=== PATIENT | male | born 1950 | race Caucasian/White ===

== ENCOUNTER 2017-05-07 22:23 | Inpatient (IN) | payer OTHER ==
[2017-05-07] MEDS ORDERED: SODIUM CHLORIDE 1,000 ML IV STA (22:49)
--- NOTE | 2017-05-07 23:23 | CT ---
EXAM: CT of the chest without contrast. HISTORY: Fever and cough. PROCEDURE: Contiguous axial CT images of the chest without contrast with coronal and sagittal reform ats. FINDINGS: There is motion artifact which limits the exam. The heart is within normal limits in size. The thoracic aorta is within normal limits in diameter. There is ectasia of the descending thoraci c aorta. There are calcified hilar lymph nodes. No infiltrate or consolidation. The bones and soft t issues are unremarkable. There is a moderate hiatal hernia. The adrenal glands and liver are normal i n appearance. Impression: Negative CT of the chest. Moderate hiatal hernia.
[2017-05-08] MEDS ORDERED: TAMIFLU PO STA (02:36)
--- NOTE | 2017-05-08 02:38 | ED.PDOC ---
General ED Provider: Dr. SABA CAMARA-ER Chief Complaint: Fever Stated Complaint: [place] with resp symptoms of cough, low grade fever and nasal congestion--several patients reportedly dx with influenza Time Seen by Physician: 22:30 Mode of Arrival: Ambulance Information Source: Patient, Penitentiary, EMT Exam Limitations: Dementia Primary Care [facility] Nursing and Triage Documentation Reviewed and Agree: Yes Respiratory Complaint Exam - Respiratory Complaint/Exam Onset/Duration: 24hrs Symptoms Are: Still present Initial Severity: Mild Current Severity: Mild Location: Nose, Chest Character: Reports: Non-productive cough Aggravating: Reports: URI Alleviating: Reports: Spontaneous resolution Associated Signs and Symptoms: Reports: Fever, Chills, URI, Nasal congestion. Denies: Rapid breathing, Dyspnea, Chest pain, Pleuritic chest pain, Wheezing, Hemoptysis, Dizziness, Calf pain, Calf swelling, Edema, Hoarseness, Vomiting, Sore throat, Weight loss, Decreased oral intake, Increased thirst, Increased appetite, Increased urination Related History: Reports: Similar episode History of Healthcare-Acquired Pneumonia: Lives at assisted Pseudomonas Risk Factors: Reports: None Home Oxygen Use: No Recent Stress Test: No Recent Echo/LV Function: No Current Antibiotic Use: No Current Asthma Medication Use: No Respiratory Distress: None Inadequate Respiratory Effort: No Dysphagia Present: No Stridor Present: No JVD Present: No Accessory Muscle Use: No Retractions: Not Present Diminished Breath Sounds: No Sinus Tenderness: None Grunting Respirations: No Kussmaul Respirations: No Differential Diagnoses: Influenza Review of Systems - Review Of Systems Constitutional: Reports: Chills, Fever, Weakness, Loss of appetite Eyes: Reports: No symptoms Ears, Nose, Mouth, Throat: Reports: Nose discharge Respiratory: Reports: Cough Cardiac: Reports: No symptoms GI: Reports: No symptoms : Reports: No symptoms Musculoskeletal: Reports: No symptoms Skin: Reports: No symptoms Neurological: Reports: No symptoms Endocrine: Reports: No symptoms Hematologic/Lymphatic: Reports: No symptoms All Other Systems: Reviewed and Negative Past Medical History - Past Medical History Previously Healthy: No Endocrine: Reports: Unknown Cardiovascular: Reports: Unknown Respiratory: Reports: Unknown Hematological: Reports: Unknown Gastrointestinal: Reports: Unknown Genitourinary: Reports: Unknown Neuro/Psych: Reports: Unknown Musculoskeletal: Reports: Unknown Cancer: Reports: Unknown - Surgical History General Surgical History: Reports: Unknown - Family History Family History: Reports: Unknown - Social History Smoking Status: Unknown if ever smoked Hx Substance Use: No Alcohol Screening: None - Immunizations Tetanus Shot up to Date: (unknown) Physical Exam - Physical Exam Appearance: Well-appearing Eyes: YNES, EOMI, Conjunctiva clear ENT: Rhinorrhea Neck: Supple Respiratory: Rhonchi Cardiovascular: RRR, Pulses normal, No rub, No murmur GI/: Soft Musculoskeletal: Normal strength Skin: Warm Neurological: Sensation intact, Alert Psychiatric: Affect appropriate, Mood appropriate Interpretation - Radiology Interpretation Radiology Interpretation By: Radiologist Radiology Results: Negative Exam Interpreted: CT Scan Physician Notification - Case Discussed Physician Notified: dr [email or web address] Time of Notification: 02:43 Critical Care Note - Critical Care Note Total Time (mins): 0 Course - Course Hematology/Chemistry: 05/07/17 23:14 05/07/17 23:14 Orders, Labs, Meds: Lab Review 05/07/17 05/07/17 05/07/17 22:48 23:14 23:14 WBC 8.52 RBC 5.19 Hgb 14.7 Hct 44.1 MCV 85.0 MCH 28.3 MCHC 33.3 RDW Coeff of Iris 15.4 H Plt Count 234 Immature Gran % (Auto) 0.4 Neut % (Auto) 81.4 Lymph % (Auto) 6.7 L Harris % (Auto) 10.4 H Eos % (Auto) 0.4 Baso % (Auto) 0.7 Immature Gran # (Auto) 0.0 Neut # 6.9 Lymph # 0.6 Harris # 0.9 Eos # 0.0 Baso # 0.1 D-Dimer (Manual) Puncture Site Lrad O2 Saturation 94.0 L ABG pH 7.443 ABG pCO2 34.1 L ABG pO2 67.0 L ABG HCO3 23.4 ABG Total CO2 24 ABG Base Excess -1 Zen Test + FiO2 % 21.0 Sodium 142 Potassium 3.9 Chloride 108 H Carbon Dioxide 23 Anion Gap 14.9 BUN 14 Creatinine 0.87 Estimated GFR (MDRD) 88.00 BUN/Creatinine Ratio 16.09 Glucose 126 H Lactic Acid Calcium 9.2 Total Bilirubin 0.47 AST 17 ALT 13 Alkaline Phosphatase 69 Total Creatine Kinase Troponin I B-Natriuretic Peptide Total Protein 7.2 Albumin 3.3 L Globulin 3.9 Albumin/Globulin Ratio 0.85 Procalcitonin Urine Color Urine Clarity Urine pH Ur Specific [place] Urine Protein Urine Glucose (UA) Urine Ketones Urine Blood Urine Nitrite Urine Bilirubin Urine Urobilinogen Ur Leukocyte Esterase Influenza A (Rapid) Influenza B (Rapid) 05/07/17 05/07/17 05/07/17 23:14 23:14 23:14 WBC RBC Hgb Hct MCV MCH MCHC RDW Coeff of Iris Plt Count Immature Gran % (Auto) Neut % (Auto) Lymph % (Auto) Harris % (Auto) Eos % (Auto) Baso % (Auto) Immature Gran # (Auto) Neut # Lymph # Harris # Eos # Baso # D-Dimer (Manual) 552.40 Puncture Site O2 Saturation ABG pH ABG pCO2 ABG pO2 ABG HCO3 ABG Total CO2 ABG Base Excess Zen Test FiO2 % Sodium Potassium Chloride Carbon Dioxide Anion Gap BUN Creatinine Estimated GFR (MDRD) BUN/Creatinine Ratio Glucose Lactic Acid 13.2 Calcium Total Bilirubin AST ALT Alkaline Phosphatase Total Creatine Kinase Troponin I B-Natriuretic Peptide Total Protein Albumin Globulin Albumin/Globulin Ratio Procalcitonin < 0.05 Urine Color Urine Clarity Urine pH Ur Specific [place] Urine Protein Urine Glucose (UA) Urine Ketones Urine Blood Urine Nitrite Urine Bilirubin Urine Urobilinogen Ur Leukocyte Esterase Influenza A (Rapid) Influenza B (Rapid) 05/07/17 05/08/17 05/08/17 23:37 00:11 00:33 WBC RBC Hgb Hct MCV MCH MCHC RDW Coeff of Iris Plt Count Immature Gran % (Auto) Neut % (Auto) Lymph % (Auto) Harris % (Auto) Eos % (Auto) Baso % (Auto) Immature Gran # (Auto) Neut # Lymph # Harris # Eos # Baso # D-Dimer (Manual) Puncture Site O2 Saturation ABG pH ABG pCO2 ABG pO2 ABG HCO3 ABG Total CO2 ABG Base Excess Zen Test FiO2 % Sodium Potassium Chloride Carbon Dioxide Anion Gap BUN Creatinine Estimated GFR (MDRD) BUN/Creatinine Ratio Glucose Lactic Acid Calcium Total Bilirubin AST ALT Alkaline Phosphatase Total Creatine Kinase 44 Troponin I < 0.0100 B-Natriuretic Peptide Total Protein Albumin Globulin Albumin/Globulin Ratio Procalcitonin Urine Color Yellow Urine Clarity Clear Urine pH 8.5 Ur Specific [place] 1.020 Urine Protein Negative Urine Glucose (UA) Negative Urine Ketones 1+ Urine Blood Negative Urine Nitrite Negative Urine Bilirubin Negative Urine Urobilinogen 1.0 Ur Leukocyte Esterase Negative Influenza A (Rapid) Negative Influenza B (Rapid) Negative 05/08/17 00:33 WBC RBC Hgb Hct MCV MCH MCHC RDW Coeff of Iris Plt Count Immature Gran % (Auto) Neut % (Auto) Lymph % (Auto) Harris % (Auto) Eos % (Auto) Baso % (Auto) Immature Gran # (Auto) Neut # Lymph # Harris # Eos # Baso # D-Dimer (Manual) Puncture Site O2 Saturation ABG pH ABG pCO2 ABG pO2 ABG HCO3 ABG Total CO2 ABG Base Excess Zen Test FiO2 % Sodium Potassium Chloride Carbon Dioxide Anion Gap BUN Creatinine Estimated GFR (MDRD) BUN/Creatinine Ratio Glucose Lactic Acid Calcium Total Bilirubin AST ALT Alkaline Phosphatase Total Creatine Kinase Troponin I B-Natriuretic Peptide 96 Total Protein Albumin Globulin Albumin/Globulin Ratio Procalcitonin Urine Color Urine Clarity Urine pH Ur Specific [place] Urine Protein Urine Glucose (UA) Urine Ketones Urine Blood Urine Nitrite Urine Bilirubin Urine Urobilinogen Ur Leukocyte Esterase Influenza A (Rapid) Influenza B (Rapid) Orders Category Date Time Status ABG DRAW REQUEST Stat CARDIO 05/07/17 22:48 Completed EKG-(ED ONLY) Stat CARDIO 05/07/17 22:48 Completed ED IV/MEDIPORT/POWERPORT .ONCE EMERGENCY 05/07/17 22:49 Active ABG Stat LAB 05/07/17 22:48 Completed B-TYPE NATRIURETIC PEPTIDE Stat LAB 05/08/17 00:33 Completed BLOOD CULTURE (ED ONLY) Stat LAB 05/07/17 23:14 Received CBC W/ AUTO DIFF Stat LAB 05/07/17 23:14 Completed COMPREHENSIVE METABOLIC PANEL Stat LAB 05/07/17 23:14 Completed CREATINE KINASE Stat LAB 05/08/17 00:33 Completed D-DIMER Stat LAB 05/08/17 00:00 Completed LACTIC ACID Stat LAB 05/07/17 23:14 Completed PROCALCITONIN Stat LAB 05/07/17 23:14 Completed RAPID FLU A/B Stat LAB 05/07/17 23:37 Completed TROPONIN I Stat LAB 05/08/17 00:33 Completed URINALYSIS C & S IF INDICATED Stat LAB 05/08/17 00:11 Completed 0.9 % Sodium Chloride [Saline Flush] MEDS 05/07/17 22:49 Ordered 1 syr IVF PRN PRN Oseltamivir Phosphate [Tamiflu] MEDS 05/08/17 02:36 Discontinued 75 mg PO ONCE STA Sodium Chloride 0.9% [Sodium Chloride] 1,000 ml MEDS 05/07/17 22:49 Active IV 100 mls/hr CT CHEST W/O CONTRAST Stat RADS 05/07/17 22:49 Completed Medications Generic Name Dose Route Start Last Admin Trade Name Freq PRN Reason Stop Dose Admin Sodium Chloride 1,000 mls @ 100 mls/hr 05/07/17 22:49 05/07/17 23:40 Sodium Chloride IV 05/08/17 08:48 100 mls/hr .Q10H STA Administration Sodium Chloride 1 syr 05/07/17 22:49 Saline Flush IVF PRN PRN To flush IV Discontinued Medications Generic Name Dose Route Start Last Admin Trade Name Freq PRN Reason Stop Dose Admin Oseltamivir Phosphate 75 mg 05/08/17 02:36 Tamiflu PO 05/08/17 02:37 ONCE STA Vital Signs: Temp Pulse Resp BP Pulse Ox 05/08/17 02:26 101.8 F H 102 H 24 118/69 96 05/08/17 00:34 101.4 F H 98 H 124/71 93 L 05/07/17 22:24 101.2 F H 96 H 28 H 155/95 H 94 L Departure - Departure Time of Disposition: 02:40 Disposition: ADMITTED INPATIENT Discharge Problem: URI (upper respiratory infection) Qualifiers: URI type: unspecified viral URI Qualified Code(s): J06.9 - Acute upper respiratory infection, unspecified Instructions: Upper Respiratory Infection (ED) Condition: Stable Pt referred to PMD for follow-up: No Allergies/Adverse Reactions: Allergies No Known Allergies Allergy (Unverified 05/08/17 01:05) Home Medications: Ambulatory Orders Acetaminophen [Tylenol] 650 mg PO Q4H PRN 05/07/17 Clopidogrel Bisulfate [Plavix] 75 mg PO DAILY 05/07/17 Docusate Sodium [Dok] 200 mg PO DAILY PRN 05/07/17 Ipratropium/Albuterol Neb [Duoneb] 1 vial NEB RTQ4H PRN 05/07/17 Lisinopril/Hydrochlorothiazide [Zestoretic 20-12.5 mg Tablet] 1 each PO DAILY Lovastatin 10 mg PO DAILY 05/07/17 Meloxicam [Mobic] 15 mg PO DAILY 05/07/17 Memantine HCl/Donepezil HCl [Namzaric 28 mg-10 mg Capsule] 1 each PO DAILY 05/07 Transfer Form Completed: No Disposition Discussed With: Family
[2017-05-08] MEDS ORDERED: TYLENOL PO PRN (02:43)
[2017-05-08] MEDS ORDERED: DOCUSATE SODIUM 200 MG PO PRN (02:47)
[2017-05-08] MEDS ORDERED: DUONEB NEB PRN (02:47)
[2017-05-08] MEDS ORDERED: SODIUM CHLORIDE 1,000 ML IV SCH ×2 (03:00→21:01)
[2017-05-08 03:43] VITALS: BMI 37.9
[2017-05-08] MEDS ORDERED: COLACE PO PRN (06:56)
[2017-05-08] MEDS: ROCEPHIN 1 GM in SODIUM CHLORIDE 50 ML IV SCH (08:21)
[2017-05-08] MEDS: LOVENOX SUBCUT SCH (08:21)
[2017-05-08] MEDS: PLAVIX PO SCH (08:22)
[2017-05-08] MEDS: ZESTORETIC 20-12.5 MG TAB PO SCH (08:22)
[2017-05-08] MEDS: MEVACOR PO SCH (08:22)
[2017-05-08] MEDS: MOBIC PO SCH (08:22)
[2017-05-08] MEDS ORDERED: NON-FORMULARY MEDICATION (Memantine Hcl/Donepezil Hcl [Namzaric 28 Mg-10 Mg Capsule] 1 EAC PO SCH (09:00)
[2017-05-08] MEDS ORDERED: NON-FORMULARY MEDICATION (Lovastatin [Lovastatin] 10 MG) PO SCH (09:00)
[2017-05-08] MEDS ORDERED: NON-FORMULARY MEDICATION (Meloxicam [Mobic] 15 MG) PO SCH (09:00)
[2017-05-08] MEDS: ARICEPT PO SCH (10:23)
[2017-05-08] MEDS: NAMENDA PO SCH ×2 (10:23→20:42)
[2017-05-08] MEDS ORDERED: DECADRON 4 MG/ML SDV IVP STA (11:03)
[2017-05-08] MEDS: TAMIFLU PO SCH ×2 (15:11→20:42)
[2017-05-09] MEDS: ROCEPHIN 1 GM in SODIUM CHLORIDE 50 ML IV SCH (09:20)
[2017-05-09] MEDS: MOBIC PO SCH (09:22)
[2017-05-09] MEDS: ZESTORETIC 20-12.5 MG TAB PO SCH (09:22)
[2017-05-09] MEDS: ARICEPT PO SCH (09:22)
[2017-05-09] MEDS: LOVENOX SUBCUT SCH (09:22)
[2017-05-09] MEDS: MEVACOR PO SCH (09:23)
[2017-05-09] MEDS: NAMENDA PO SCH ×2 (09:23→20:06)
[2017-05-09] MEDS: PLAVIX PO SCH (09:23)
[2017-05-09] MEDS: TAMIFLU PO SCH ×2 (09:26→20:07)
[2017-05-09] MEDS: NORVASC PO SCH (12:39)
[2017-05-10] MEDS: ROCEPHIN 1 GM in SODIUM CHLORIDE 50 ML IV SCH (09:31)
[2017-05-10] MEDS: LOVENOX SUBCUT SCH (09:31)
[2017-05-10] MEDS: ZESTORETIC 20-12.5 MG TAB PO SCH (09:32)
[2017-05-10] MEDS: ARICEPT PO SCH (09:33)
[2017-05-10] MEDS: MOBIC PO SCH (09:33)
[2017-05-10] MEDS: TAMIFLU PO SCH (09:33)
[2017-05-10] MEDS: NORVASC PO SCH (09:33)
[2017-05-10] MEDS: NAMENDA PO SCH (09:34)
[2017-05-10] MEDS: MEVACOR PO SCH (09:34)
[2017-05-10] MEDS: PLAVIX PO SCH (09:34)
[2017-05-10 10:46] VITALS: BP 146/82; TEMP 98.5
--- NOTE | 2017-05-10 10:56 | PN ---
DATE OF SERVICE: 05/09/17 SUBJECTIVE: The patient was admitted with fever, upper respiratory infection and hydration with IV fluids and antibiotic the patient is feeling a lot better. Blood pressure been elevated. Otherwise sitting in the chair and says that he is feeling better. No fever. REVIEW OF SYSTEMS: CONSTITUTIONAL: No fever, no chills. HEENT: Normal. ENDOCRINE: No weight gain, no weight loss. CVS: No angina symptoms. No CHF symptoms. No palpitations. No atypical chest pain for CAD. No shortness of breath. No PND, no orthopnea. RESPIRATORY: No cough, no hemoptysis. GI: No nausea, no vomiting. No abdominal pain. : No hematuria. No polyuria. MUSCULOSKELETAL:. No joint swelling. PSYCHIATRIC: Not anxious. No depression. No suicidal thoughts. No homicidal thoughts. SKIN: Intact. No rash. PHYSICAL EXAMINATION: V/S: Blood pressure 154/92, respiratory rate 24, Heart rate 68, temperature 97.3 with saturation 94% on room air. HEENT: Normocephalic, atraumatic. Mucosa dry. Pallor positive. No icterus. NECK: Supple. No JVD, no carotid bruit. No lymphadenopathy. LUNGS: Bilateral entry is decreased some wheezing is present. No rales or rhonchi. HEART: S1, S2 normal. No S3. No murmur, gallop or regurgitation. ABDOMEN: Soft, nontender. Bowel sounds active. No rigidity. No rebound or guarding. No CVA tenderness. EXTREMITIES: No clubbing, cyanosis or pedal edema. MUSCULOSKELETAL: No joint swelling. NEUROLOGIC: Awake, alert, oriented times three. No focal deficit. LYMPHATIC: No lymph nodes palpable. SKIN: Intact. LABS: WBC 3.59, hgb 13.2, hct 39.7, plt count 183, sodium 1742, potassium 3.8, chloride 109, bicarb 23, BUN 16, creatinine 0.82, glucose 99. ASSESSMENT: 1. Febrile illness most likely from the upper respiratory infection 2. Dehydration which is better 3. History of CVA 4. Hypertension 5. Dyslipidemia 6. Alzheimer Dementia 7. Rheumatoid arthritis PLAN: 1. Will start the patient on the Norvasc 10mg PO daily 2. Continue the Rocephin 3. Plavix 4. Lovenox for the DVT prophylaxis 5. Continue the Tamiflu with the given fever the patient being treated with Tamiflu. TIME SPENT: More than 35 minutes MTDD
--- NOTE | 2017-05-10 11:13 | HP ---
DATE OF SERVICE: 05/08/17 CHIEF COMPLAINT: The patient is a long term patient sent for the fever and coughing. HISTORY OF PRESENT ILLNESS: This is a 66 year old male who lives at the long term sent from there as patient has been having fever, coughing, congestion, wheezing saturation has been low and weakness. He came to the emergency room temperature of 101.2, blood pressure 155/95. Has history of CVA, arthritis and hypertension. Dr. Covington saw the patient. Flu and strep was negative. WBC was normal. D-Dimer 552. ABG Showed the pH 7.443, pCO2 34.1, pO2 67. BNP was negative. CT scan of the chest was negative. At that time the patient was admitted to the hospital with upper respiratory infection, fever and dehydration. REVIEW OF SYSTEMS: CONSTITUTIONAL: Fever, no chills. Weakness and tiredness. HEENT: Normal. ENDOCRINE: No weight gain; no weight loss. CVS: No chest pain. No PND, no orthopnea. Shortness of breath. No PND, no orthopnea. RESPIRATORY: Cough, Congestion. No hemoptysis. GI: No nausea, no vomiting. No abdominal pain. No melena. : No hematuria. No polyuria. MUSCULOSKELETAL: No joint swelling. PSYCHIATRIC: Not anxious. No depression. No suicidal thoughts. No homicidal thoughts. SKIN: Intact, no open lesions. PAST MEDICAL HISTORY: Coronary artery disease Alzheimer Dementia Osteoarthritis Rheumatoid arthritis PAST SURGICAL HISTORY: None PERSONAL HISTORY: The patient does not smoke or drink. Resides at the long term. Family History is significant for diabetes and cancer. MEDICATIONS: DUO NEBS Namzaric Mobic Lovastatin Zestoretic Docusate Plavix Tylenol ALLERGIES: No known drug allergies. PHYSICAL EXAMINATION: V/S: Temperature 100, blood pressure 171/98, respiratory rate 18, heart rate 97 , temperature 100 with saturation 94%. HEENT: Atraumatic, normocephalic. No scleral icterus. Pallor positive. Mucosa dry. NECK: Supple. No JVD, no bruit. No lymphadenopathy. No thyromegaly. HEART: S1, S2 normal. No murmur. No cyanosis or clubbing. No ascites. LUNGS: Decreased and basilar crackles. No rales or rhonchi. ABDOMEN: Soft, nontender. Bowel sounds are active. No CVA tenderness. No rigidity or guarding. EXTREMITIES: No cyanosis, clubbing or pedal edema. MUSCULOSKELETAL: Normal joints, no swelling. NEUROLOGIC: The patient is awake and alert but does not respond much. SKIN: Intact; no open lesions. LYMPHATIC: No lymph nodes palpable. LABS: WBC 7.15, hgb 14.3, hct 42.5, plt count 222, sodium 144, potassium 3.7, chloride 108, bicarb 25, BUN 13, creatinine 0.88, glucose 123 ASSESSMENT: 1. Upper respiratory infection 2. Fever rule out any occult infection 3. Dehydration 4. Alzheimer's Dementia 5. Hypertension 6. Dyslipidemia PLAN: 1. Admit patient to the regular floor 2. CBC and CMP today and daily 3. Cardiac and enzymes and Troponin 4. IV fluids 5. Rocephin 1 gram daily 6. Dexamethasone 7. DUO NEBS 8. Lovenox for the DVT prophylaxis 9. Will decrease IV fluids to 40ml per hour from 75ml TIME SPENT: MORE THAN 75 minutes for the admission. MTDD
--- NOTE | 2017-05-30 13:10 | DS ---
DATE OF SERVICE: 05/10/17 FINAL DIAGNOSIS: 1. FEBRILE ILLNESS, MOST LIKELY VIRAL 2. DEHYDRATION 3. UPPER RESPIRATORY INFECTION 4. STATUS POST CHANGE IN MENTAL STATUS, BETTER NOW, MORE AWAKE AND ALERT NOW 5. HISTORY OF CEREBRAL VASCULAR ACCIDENT 6. HISTORY OF TIA 7. RHEUMATOID ARTHRITIS 8. OSTEOARTHRITIS 9. DJD OF THE SPINE 10. ALZHEIMER'S DEMENTIA PLAN: 1. Discharge the patient to the long term. 2. Diet: regular and cardiac diet. 3. Activity: Up to chair and as tolerated. 4. Physical and Occupational Therapy, please evaluate and treat. 5. Continue previous long term medications. 6. New Medications: Norvasc 10 mg p.o. daily Keflex 500 mg p.o. twice daily for five days Prednisone 10 mg p.o. twice daily 7. Fall precautions. 8. Decubitus precautions. 9. Can participate in the long term activities. 10. Continue the rest of the long term medications of Plavix, Docusate sodium , DuoNeb, Lisinopril, Hydrochlorothiazide, Lovastatin, Mobic, Namenda. DISEASE SPECIFIC EDUCATION: About the febrile illness, dehydration and pneumonia vaccination was discussed with the patient and long term in detail. HOSPITAL COURSE: Pillo Winters who is a 66 year old male long term resident who came to the emergency room as the patient was having a fever of 101 to 102, cough and congestion and sinus drainage. Flu and strep were negative. As the patient was dehydrated, he was admitted to the hospital with IV fluids. He still had a fever of 101.4 and 101.8. The patient was started on empiric antibiotic of Rocephin 1 gram daily. Blood cultures and urine cultures were all negative. Urine was negative for any infection. Ketones were positive. With the given IV fluids, the patient was up and about and more awake and alert and did not have any problems. Gradually, the fever did settle down. No more fever after the 18th. He is feeling better. At that time, the patient was discharged back to the long term on Keflex and steroids. TIME SPENT: MORE THAN 65 MINUTES MTDD
== END 2017-05-10 11:45 | DRG 153 ==
LOC: ED 22:23 → MEDSURG A 05-08 02:47
PROVIDERS: ADMIT Emergency Medicine; ATTEND Emergency Medicine
DX: J06.9 Acute upper respiratory infection, unspecified (principal); B34.9 Viral infection, unspecified; R50.9 Fever, unspecified; R06.02 Shortness of breath; R53.1 Weakness; E86.0 Dehydration; G30.9 Alzheimer's disease, unspecified; F02.80 Dementia in other diseases classified elsewhere, unspecified severity, without behavioral disturbance, psychotic disturbance, mood disturbance, and anxiety; M06.9 Rheumatoid arthritis, unspecified; M19.90 Unspecified osteoarthritis, unspecified site; M47.9 Spondylosis, unspecified; Z86.73 Personal history of transient ischemic attack (TIA), and cerebral infarction without residual deficits; Z79.02 Long term (current) use of antithrombotics/antiplatelets; Z79.899 Other long term (current) drug therapy
CPT/HCPCS: 36415; 80053; 81001; 82550; 82803; 83605; 83880; 84145; 84484; 85025; 85379; 87040; 87081; 87804; 93005; 93010; 96360; 96361; 99284

== ENCOUNTER 2017-06-06 12:26 | Outpatient (CLI) | END 2017-06-06 12:27 | disposition home or self-care (01) | LOC: NONPT 12:26 | PROVIDERS: ATTEND Emergency Medicine | DX: R30.0 Dysuria (principal) | CPT/HCPCS: 81001; 87086 ==